=== PATIENT | female | born 1995 | race Caucasian/White ===

== ENCOUNTER 2017-10-27 03:15 | Emergency (ER) | payer OTHER ==
[~2017-10-27] VITALS: Ht 165.1 cm; Wt 81.6 kg
[~2017-10-27 03:15] MED LIST: ETHI1TAB24 PO
--- NOTE | 2017-10-27 04:16 | NUR ---
RAPID STREP OBTAINED AND SENT TO LAB.
[2017-10-27 05:00] VITALS: BP 125/89
--- NOTE | 2017-10-27 05:00 | NUR ---
Patient discharged to home in stable condition. Written and verbal after care instructions given. Patient verbalizes understanding of instruction. pt ambulatory with a steady gait VITAL SIGNS WITHIN NORMAL LIMITS.
== END 2017-10-27 05:01 | disposition home or self-care (01) ==
LOC: ER 03:18
DX: J02.9 Acute pharyngitis, unspecified (principal)
CPT/HCPCS: 87070; 87880; 99284; A4606; Z7610; 86403-TC